=== PATIENT | male | born 1995 | race African-American/Black ===

== ENCOUNTER 2019-12-23 17:15 | Emergency (ER) | payer SELFPAY ==
[2019-12-23] MEDS ORDERED: DEXAMETHASONE SOD PHOS INJ 10 MG/1 ML VIAL IV ONE ×2 (17:27→19:34)
[2019-12-23] MEDS ORDERED: ACETAMINOPHEN 650 MG SUPP.RECT PR ONE (17:28)
--- NOTE | 2019-12-23 17:31 | ER Document Report ---
ED General - General Chief Complaint: Sore Throat Stated Complaint: SORE THROAT Primary Care Provider: JEANETTE YOUNG MD [ACTIVE STAFF] - Follow up in 1 week Mode of Arrival: Medic Information source: Patient Notes: 24-year-old male who presents emergency department with complaints of left lower back pain and sore throat. Reports symptoms started with the back pain approximately 3 days ago. He denies testicular pain. Denies pain with void. Denies difficulty voiding. He reports that he then started having a sore throat. Reports he has not been able to eat or drink for the past 2 days. EMS did attempt to give him some Tylenol but he was unable to swallow it. He reports low-grade fever denies vomiting diarrhea. Reports approximately 2 times a year he gets strep throat. Reports he has been advised to follow-up and get his tonsils removed but he has not done this. No known covid 19 exposure. Patient does not work. Denies recent out of the state of the country. TRAVEL OUTSIDE OF THE [place] IN LAST 30 DAYS: No - HPI Onset: Other - 3 DAYS Onset/Duration: Persistent Quality of pain: Achy Associated symptoms: Fever, Sore throat Exacerbated by: Denies Relieved by: Denies Similar symptoms previously: No Recently seen / treated by doctor: No - Related Data Allergies/Adverse Reactions: No Known Allergies Allergy (Unverified 12/23/19 18:42) Past Medical History - General Information source: Patient - Social History Smoking Status: Unknown if Ever Smoked Cigarette use (# per day): No Frequency of alcohol use: None Drug Abuse: None Occupation: NONE Family History: None Patient has suicidal ideation: No Patient has homicidal ideation: No - Medical History Medical History: Negative Surgical Hx: Negative Review of Systems - Review of Systems Notes: Review HPI for review of systems., All other systems negative Physical Exam - Vital signs Vitals: Temp Pulse Resp BP Pulse Ox 99.2 F 96 20 147/77 H 98 12/23/19 18:00 12/23/19 18:00 12/23/19 18:00 12/23/19 18:00 12/23/19 18:00 - General General appearance: Alert In distress: None - HEENT Head: Normocephalic, Atraumatic Eyes: Normal Conjunctiva: Normal Extraocular movements intact: Yes Mucous membranes: Moist Pharynx: Erythema, Exudate, Tonsillar hypertrophy, Potential airway comprom. Neck: Normal, Supple - Respiratory Respiratory status: No respiratory distress Chest status: Nontender Breath sounds: Normal Chest palpation: Normal - Cardiovascular Rhythm: Regular Heart sounds: Normal auscultation Murmur: No - Abdominal Inspection: Normal Distension: No distension Bowel sounds: Normal Tenderness: Nontender Organomegaly: No organomegaly - Back Back: Tender, CVA tenderness - left flank pain - Extremities General upper extremity: Normal ROM, Normal strength General lower extremity: Normal ROM, Normal strength - Neurological Neuro grossly intact: Yes Cognition: Normal Orientation: AAOx4 [place] Coma Scale Eye Opening: Spontaneous Maria C Coma Scale Verbal: Oriented [place] Coma Scale Motor: Obeys Commands Maria C Coma Scale Total: 15 Speech: Normal Motor strength normal: LUE, RUE, LLE, RLE Sensory: Normal - Psychological Associated symptoms: Normal affect, Normal mood - Skin Skin Temperature: Warm Skin Moisture: Dry Skin Color: Normal Course - Re-evaluation Re-evalutation: 12/23/19 19:43 24-year-old male presents with sore throat for the past [address] with contrast shows enlarged tonsils meeting in the midline causing moderate oropharyngeal airway narrowing. Patient reported he was unable to swallow liquid Tylenol by EMS. Patient received rectal acetaminophen upon arrival with Toradol Decadron. Patient with leukocytosis. Contacted Dr. Young, ENT. He reports of patient is able to tolerate p.o. he should be able to go home. He advised us to given 10 mg more of IV Decadron. I also advised 60 mg p.o. steroids x5 days followed by a Medrol Dosepak and amoxicillin elixir. He reports if patient cannot tolerate p.o. then he should be admitted for steroids and IV Unasyn. I discussed this with the patient. Patient reports he is able to swallow p.o. fluids. Patient has a clear voice. Will attempt p.o. challenge. 12/23/19 20:01 Patient drinking p.o. fluids without problems. 12/23/19 20:11 Patient drinking p.o. fluids eating scot crackers without problems. 12/23/19 20:34 I contacted [facility] regarding patient's prescriptions. Patient does not have money. He does not have insurance. They advised me to transmit the prescript ions to [facility] since [facility] has generic antibiotics. Patient is tolerating p.o. fluids eating scot crackers and popsicle without problem, he has a clear voice. Patient has received penicillin IM, 1 L of normal saline and a total of 20 mg Decadron IV. He was instructed on all the meds he has already received here he was instructed on the prescriptions that I have sent to [facility]. I gave him a generic prescription card and I also gave him $20 to get the prescriptions. Hopefully he will obtain the prescriptions tomorrow. I also put in a request for discharge consult to possibly obtain [facility] [place] to get his tonsils removed. Patient was instructed should he have any trouble swallowing h ave a muffled voice or any concerns he is to return immediately. He verbalized understanding to all instructions. Soft Tissue Neck CT 12/23/19 17:25 IMPRESSION: Tonsillitis without intra tonsillar or peritonsillar abscess Reactive cervical adenopathy Laboratory 12/23/19 12/23/19 12/23/19 17:38 17:38 17:38 WBC 20.2 H RBC 4.95 Hgb 14.0 Hct 41.2 MCV 83 MCH 28.3 MCHC 33.9 RDW 13.0 Plt Count 285 Lymph % (Auto) Not Reportable [place] % (Auto) Not Reportable Eos % (Auto) Not Reportable Baso % (Auto) Not Reportable Absolute Neuts (auto) Not Reportable Absolute Lymphs (auto) Not Reportable Absolute Monos (auto) Not Reportable Absolute Eos (auto) Not Reportable Absolute Basos (auto) Not Reportable Total Counted 100 Seg Neutrophils % Not Reportable Seg Neuts % (Manual) 82 H Band Neutrophils % 1 L Lymphocytes % (Manual) 5 L Atypical Lymphs % 1 Monocytes % (Manual) 10 Eosinophils % (Manual) 1 Basophils % (Manual) 0 Abs Neuts (Manual) 16.8 H Abs Lymphs (Manual) 1.2 Abs Monocytes (Manual) 2.0 H Absolute Eos (Manual) 0.2 Abs Basophils (Manual) 0.0 Platelet Comment ADEQUATE Poikilocytosis SLIGHT Sodium 135.4 L Potassium 3.8 Chloride 100 Carbon Dioxide 25 Anion Gap 10 BUN 12 Creatinine 1.19 Est GFR ( Amer) > 60 Est GFR (MDRD) Non-Af > 60 Glucose 138 H Calcium 9.5 Total Bilirubin 0.9 Direct Bilirubin 0.1 Neonat Total Bilirubin Not Reportable Neonat Direct Bilirubin Not Reportable Neonat Indirect Bili Not Reportable AST 19 ALT 19 Alkaline Phosphatase 96 Total Protein 7.9 Albumin 4.4 Urine Color Urine Appearance Urine pH Ur Specific [place] Urine Protein Urine Glucose (UA) Urine Ketones Urine Blood Urine Nitrite Urine Bilirubin Urine Urobilinogen Ur Leukocyte Esterase Urine WBC (Auto) Urine RBC (Auto) Urine Mucus (Auto) Urine Ascorbic Acid Group A Strep Rapid POSITIVE 12/23/19 17:38 WBC RBC Hgb Hct MCV MCH MCHC RDW Plt Count Lymph % (Auto) [place] % (Auto) Eos % (Auto) Baso % (Auto) Absolute Neuts (auto) Absolute Lymphs (auto) Absolute Monos (auto) Absolute Eos (auto) Absolute Basos (auto) Total Counted Seg Neutrophils % Seg Neuts % (Manual) Band Neutrophils % Lymphocytes % (Manual) Atypical Lymphs % Monocytes % (Manual) Eosinophils % (Manual) Basophils % (Manual) Abs Neuts (Manual) Abs Lymphs (Manual) Abs Monocytes (Manual) Absolute Eos (Manual) Abs Basophils (Manual) Platelet Comment Poikilocytosis Sodium Potassium Chloride Carbon Dioxide Anion Gap BUN Creatinine Est GFR ( Amer) Est GFR (MDRD) Non-Af Glucose Calcium Total Bilirubin Direct Bilirubin Neonat Total Bilirubin Neonat Direct Bilirubin Neonat Indirect Bili AST ALT Alkaline Phosphatase Total Protein Albumin Urine Color YELLOW Urine Appearance CLEAR Urine pH 6.0 Ur Specific [place] 1.020 Urine Protein NEGATIVE Urine Glucose (UA) NEGATIVE Urine Ketones NEGATIVE Urine Blood MODERATE H Urine Nitrite NEGATIVE Urine Bilirubin NEGATIVE Urine Urobilinogen 4.0 H Ur Leukocyte Esterase NEGATIVE Urine WBC (Auto) 1 Urine RBC (Auto) 7 Urine Mucus (Auto) OCC Urine Ascorbic Acid NEGATIVE Group A Strep Rapid - Vital Signs Vital signs: Temp Pulse Resp BP Pulse Ox 98.7 F 82 18 147/72 H 99 12/23/19 21:06 12/23/19 21:06 12/23/19 21:06 12/23/19 21:06 12/23/19 21:06 - Laboratory Result Diagrams: 12/23/19 17:38 12/23/19 17:38 Laboratory results interpreted by me: 12/23/19 12/23/19 12/23/19 17:38 17:38 17:38 WBC 20.2 H Seg Neuts % (Manual) 82 H Band Neutrophils % 1 L Lymphocytes % (Manual) 5 L Abs Neuts (Manual) 16.8 H Abs Monocytes (Manual) 2.0 H Sodium 135.4 L Glucose 138 H Urine Blood MODERATE H Urine Urobilinogen 4.0 H - Diagnostic Test Radiology reviewed: Image reviewed, Reports reviewed - Consults dr young Reason for consultation: 12/23/19 19:33 strep, tonsillitis, concern over airway Discharge - Discharge Clinical Impression: Sore throat, Tonsillitis, Strep throat Condition: Stable Disposition: HOME, SELF-CARE Instructions: Acetaminophen, Amoxicillin ([facility]), ENT, Fever ([facility]), Use of Rmxl-Rul-Nihkree Ibuprofen ([facility]), Penicillins ([facility]), Steroid Medication Injection, Steroid Medication, Strep Throat ([facility]), Tonsillitis ([facility]) Additional Instructions: *You have been evaluated for a sore throat, strep throat tonsillitis *Take medication as prescribed-take 60 mg prednisone daily for 5 days and then start Medrol Dosepak *Take amoxicillin suspension 500 mg p.o. by mouth twice a day for 10 days *All your prescriptions have been sent to [facility] on [address] [employer] *Take ibuprofen as indicated for pain *Monitor your temperature, take Tylenol or Motrin as indicated *Gargle with warm salt water and suck on throat lozenges for comfort *Change toothbrush after two days of antibiotics *Do not let anyone drink/eat after you *Good hand washing *Follow-up with an ENT within 1 week for recheck and to discuss tonsillectomy *Return to emergency department immediately if you are unable to swallow, worsening symptoms, concerns. Monitor your blood pressure. Your blood pressure was elevated today. This may be because you were anxious, in pain or because you need medication. It is important to follow up with your primary care provider for full evaluation. Prescriptions: Amoxicillin 500 mg PO BID #130 ml Prednisone [Deltasone 20 mg Tablet] 60 mg PO DAILY #15 tablet Methylprednisolone [Medrol Dosepack (4 mg/Tab) 21 Tab/Dosepak] 4 mg PO ASDIR PRN #[id number] tab.[id number] PRN Reason: Forms: Elevated Blood Pressure Referrals: JEANETTE YOUNG MD [ACTIVE STAFF] - Follow up in 1 week
[2019-12-23 18:09] LABS: HEMATOCRIT 41.2 % (37.9-51.0); MEAN CORPUSCULAR HEMOGLOBIN 28.3 pg (27.0-33.4); MEAN CORPUSCULAR HGB CONC 33.9 g/dL (32.0-36.0); MEAN CORPUSCULAR VOLUME 83 fl (80-97); PLATELET COUNT 285 10^3/uL (150-450); RED BLOOD COUNT 4.95 10^6/uL (4.35-5.55); WHITE BLOOD COUNT 20.2 10^3/uL (4.0-10.5)
[2019-12-23 18:11] LABS: ALBUMIN 4.4 g/dL (3.5-5.0); ALKALINE PHOSPHATASE 96 U/L (38-126); ANION GAP 10 (5-19); ASPARTATE AMINO TRANSFERASE 19 U/L (17-59); BILIRUBIN,DIRECT 0.1 mg/dL (0.0-0.4); BILIRUBIN,TOTAL 0.9 mg/dL (0.2-1.3); BLOOD UREA NITROGEN 12 mg/dL (7-20); CALCIUM 9.5 mg/dL (8.4-10.2); CARBON DIOXIDE 25 mmol/L (22-30); CHLORIDE 100 mmol/L (98-107); GLUCOSE 138 mg/dL (75-110); POTASSIUM 3.8 mmol/L (3.6-5.0); TOTAL PROTEIN 7.9 g/dL (6.3-8.2)
[2019-12-23 18:32] LABS: ABSOLUTE LYMPHOCYTES# (MANUAL) 1.2 10^3/uL (0.5-4.7); BAND NEUTROPHILS % (MANUAL) 1 % (3-5); BASOPHILS % (MANUAL) 0 % (0-2); EOSINOPHILS % (MANUAL) 1 % (0-6); LYMPHOCYTES % (MANUAL) 5 % (13-45); MONOCYTES % (MANUAL) 10 % (3-13); SEGMENTED NEUTROPHILS % (MAN) 82 % (42-78); TOTAL CELLS COUNTED 100
[2019-12-23 18:35] LABS: POIKILOCYTOSIS SLIGHT
[2019-12-23] MEDS ORDERED: PENICILLIN G BENZATHINE 1.2 MILLION UNIT/2 ML DISP.SYRIN IM ONE (18:35)
[2019-12-23] MEDS ORDERED: KETOROLAC TROMETHAMINE INJ/PF 30 MG/1 ML SDV IV ONE (18:37)
[2019-12-23 18:43] LABS: PLATELET COMMENT ADEQUATE
[2019-12-23 18:47] LABS: APPEARANCE,URINE CLEAR; BILIRUBIN,URINE NEGATIVE (NEGATIVE); COLOR,URINE YELLOW; GLUCOSE, URINE NEGATIVE (NEGATIVE); KETONES,URINE NEGATIVE (NEGATIVE); LEUKOCYTE ESTERASE,URINE NEGATIVE (NEGATIVE); NITRITE,URINE NEGATIVE (NEGATIVE); PROTEIN,URINE NEGATIVE (NEGATIVE)
--- NOTE | 2019-12-23 19:20 | RADIOLOGY REPORT (SQ) ---
EXAM DESCRIPTION: CT SOFT TISSUE NECK WITH IMAGES COMPLETED DATE/TIME: 12/23/2019 6:38 pm REASON FOR STUDY: difficulty swallowng COMPARISON: None. TECHNIQUE: Post IV contrasted scanning from skull base through lung apices with review of bone, soft tissue and lung windows. Reconstructed coronal and sagittal MPR images reviewed. All images stored on PACS. All CT scanners at this facility use dose modulation, iterative reconstruction, and/or weight based d osing when appropriate to reduce radiation dose to as low as reasonably achievable (ALARA). [facility]: Dose Right [facility]: CareDose [facility]: Dose Right [facility]: Teradose 4D [facility]: ONOFFMIX (?) CONTRAST TYPE AND DOSE: contrast/concentration: Isovue mg/ml; Total Contrast Delivered: 74.0 ml; To hetal Saline Delivered: 39.5 ml RENAL FUNCTION: None required. The patient is less than 50 years old. RADIATION DOSE: CT Rad equipment meets quality standard of care and radiation dose reduction techniq ues were employed. CTDIvol: 21.7 mGy. DLP: 666 mGy-cm. . LIMITATIONS: None. FINDINGS: SKULL BASE: Intact. MAJOR SALIVARY GLANDS: No solid or cystic masses. No inflammatory changes. LYMPHADENOPATHY: There is reactive cervical adenopathy. Index nodes are as follows: Right jugulodigastric lymph node 2.7 x 1.7 cm axial image 50 Left jugulodigastric lymph node 2.6 x 1.5 cm axial image 49 Multiple 1 cm short axis posterior triangle and carotid space lymph nodes MUCOSAL MASSES OR ASYMMETRY: Bilateral pharyngeal tonsillar enlargement is present without intra tons illar or peritonsillar abscess. Both tonsils measure about 4 x 2.5 cm in size, meeting in the midlin e, causing moderate oropharyngeal airway narrowing, best shown on axial image 38 LARYNX/CORDS: No abnormal findings. VASCULAR STRUCTURES: The major vessels are patent. LUNG APICES: Clear. BONES: Intact. THYROID: Normal size. No masses. PARANASAL SINUSES: Mild mucous membrane thickening right frontal and bilateral anterior sinuses OTHER: No other significant finding. IMPRESSION: Tonsillitis without intra tonsillar or peritonsillar abscess Reactive cervical adenopathy TECHNICAL DOCUMENTATION: JOB ID: [id number] Quality ID # [id number]: Final reports with documentation of one or more dose reduction techniques (e.g., Au tomated exposure control, adjustment of the mA and/or kV according to patient size, use of iterative reconstruction technique) 2010 [employer] All Rights Reserved Reading location - IP/workstation name: [id number]
[2019-12-23] MEDS ORDERED: NORMAL SALINE 1000 ML 1,000 ML IV ONE (19:35)
[2019-12-23] MEDS ORDERED: IBUPROFEN SUSP 100 MG/5 ML ORAL SYRINGE PO ONE ×2 (19:35→20:00)
[2019-12-23 21:09] VITALS: BP 147/72
== END 2019-12-23 21:06 | disposition home or self-care (01) ==
LOC: ER 17:15
DX: J02.0 Streptococcal pharyngitis (principal); M54.5 Low back pain; R50.9 Fever, unspecified
CPT/HCPCS: 96376; 99283; 96372; 96361; 96374; 96375; 36415; 87880; 85025; 80053; 81001; 70491; J1885; J0561; J7030; J1100

== ENCOUNTER 2020-01-15 10:28 | Emergency (ER) | payer SELFPAY ==
[2020-01-15] MEDS ORDERED: COLCHICINE 0.6 MG TABLET PO ONE ×2 (11:11→12:21)
[2020-01-15] MEDS ORDERED: KETOROLAC TROMETHAMINE 60 MG/2 ML SDV IM ONE (11:11)
--- NOTE | 2020-01-15 11:13 | ER Document Report ---
ED Extremity Problem, Lower - General Chief Complaint: Foot Pain Stated Complaint: FOOT PAIN Time Seen by Provider: 01/15/20 11:11 Primary Care Provider: [facility] [Provider Group] - Follow up as needed [facility] [Provider Group] - Follow up as needed Mode of Arrival: Wheelchair Information source: Patient Notes: 24-year-old female presented to ED for flareup of her gout. She states she is been having them more frequently lately. She states she does not have a primary care doctor so she does not go to the primary care to keep control of the gout. She states she comes to the emergency room when she has a flareup. Her pain is a 5 out of 5 at this time to the right foot. She states she smokes 4 to 5 cigarettes a day and smokes marijuana several times daily. She does not drink alcohol. She states she tries to stay on her gout diet. She states she has no other medical history but the gout. TRAVEL OUTSIDE OF THE [place] IN LAST 30 DAYS: No - HPI Patient complains to provider of: Pain, Swelling Location: Foot Occurred: Other - Right foot 3 days Quality of pain: Burning, Pressure, Sharp, Throbbing Severity: Severe Pain Level: 5 Recent injury: No Associated symptoms: Painful ambulation Exacerbated by: Movement, Walking Relieved by: Nothing - Related Data Allergies/Adverse Reactions: No Known Allergies Allergy (Unverified 12/23/19 18:42) Past Medical History - General Information source: Patient - Social History Smoking Status: Current Every Day Smoker Cigarette use (# per day): Yes - 4-5 cigarettes a day Smoking Education Provided: Yes - 4 minutes Frequency of alcohol use: None Drug Abuse: Marijuana - Multiple times daily Family History: None Patient has suicidal ideation: No Patient has homicidal ideation: No - Past Medical History Cardiac Medical History: Reports: Hx Hypertension Pulmonary Medical History: Reports: None EENT Medical History: Reports: None Neurological Medical History: Reports: None Endocrine Medical History: Reports: None Renal/ Medical History: Reports: None Malignancy Medical History: Reports None GI Medical History: Reports: None Musculoskeletal Medical History: Reports Hx Gout Skin Medical History: Reports None Psychiatric Medical History: Reports: None Traumatic Medical History: Reports: None Infectious Medical History: Reports: None Surgical Hx: Negative Past Surgical History: Reports: None - Immunizations Immunizations up to date: Yes Review of Systems - Review of Systems Constitutional: No symptoms reported EENT: No symptoms reported Cardiovascular: No symptoms reported Respiratory: No symptoms reported Gastrointestinal: No symptoms reported Genitourinary: No symptoms reported Male Genitourinary: No symptoms reported Musculoskeletal: Gout, Other - Gout right foot chronic Skin: No symptoms reported Hematologic/Lymphatic: No symptoms reported Neurological/Psychological: No symptoms reported -: Yes All other systems reviewed and negative Physical Exam - Vital signs Vitals: Temp Pulse Resp BP Pulse Ox 98.2 F 103 H 20 180/92 H 98 01/15/20 10:32 01/15/20 10:32 01/15/20 10:32 01/15/20 10:32 01/15/20 10:32 Interpretation: Normal - General General appearance: Appears well, Alert - HEENT Head: Normocephalic, Atraumatic Eyes: Normal Pupils: PERRL - Respiratory Respiratory status: No respiratory distress Chest status: Nontender Breath sounds: Normal Chest palpation: Normal - Cardiovascular Rhythm: Regular Heart sounds: Normal auscultation Murmur: No - Abdominal Inspection: Normal Distension: No distension Bowel sounds: Normal Tenderness: Nontender Organomegaly: No organomegaly - Back Back: Normal, Nontender - Extremities General upper extremity: Normal inspection, Nontender, Normal color, Normal ROM, Normal temperature General lower extremity: Normal ROM, Normal temperature, Normal weight bearing. No: Levi's sign Foot: Tender - Edema and swelling great toes and area of surrounding, Edema, No evidence of FB. No: Abrasion, Deformity, Ecchymosis, Instability, Laceration, Metatarsal compress. pain, Nail injury, Navicular tenderness, Tender 5th metatarsal - Neurological Neuro grossly intact: Yes Cognition: Normal Orientation: AAOx4 [place] Coma Scale Eye Opening: Spontaneous Maria C Coma Scale Verbal: Oriented Maria C Coma Scale Motor: Obeys Commands [place] Coma Scale Total: 15 Speech: Normal Motor strength normal: LUE, RUE, LLE, RLE Sensory: Normal - Psychological Associated symptoms: Normal affect, Normal mood - Skin Skin Temperature: Warm Skin Moisture: Dry Skin Color: Normal Course - Vital Signs Vital signs: Temp Pulse Resp BP Pulse Ox 98.2 F 103 H 20 132/88 H 98 01/15/20 11:08 01/15/20 10:32 01/15/20 10:32 01/15/20 11:17 01/15/20 10:32 Discharge - Discharge Clinical Impression: Gout Qualifiers: Gout site: foot Gout etiology: unspecified cause Chronicity: unspecified Laterality: unspecified laterality Qualified Code(s): M10.9 - Gout, unspecified Condition: Stable Disposition: HOME, SELF-CARE Additional Instructions: Gout You have been diagnosed as having gout. Gout is a problem caused by an excess of uric acid, a natural chemical found in the body. The cause of this disease is unknown. Gout arthritis occurs when crystals of uric acid form in the joints. The big toe is the most common joint involved, but any joint can become affected. Persons with gout may also form uric acid kidney stones, resulting in flank pain and blood in the urine. Nodules of uric acid may form under the skin. The first step of treatment is to decrease the inflammation in the joint with antiinflammatory medication. Medication to lower the uric acid level in the blood may then be prescribed. This medication should be taken regularly, as any sudden change in dosage may provoke an attack of gout. Some foods, such as red meat, can provoke an attack in some gout sufferers. Call the doctor if new symptoms arise, or if you do not improve. Gout Diet Changing your diet can decrease the uric acid in your blood. High levels of uric acid cause gouty arthritis and uric acid kidney stones. If you have gout, you should avoid meats that are high in purine. Meat products to avoid include liver, kidneys, and brains. In general, poultry is better than red meats. Seafoods to avoid include anchovies, sardines, wayne, mackerel, and scallops. In addition to limiting purine-rich foods, people with gout should limit protein intake to 10-15% of total calories. Carbohydrate intake should be around 50% of total daily calories. Limit fat intake to 30% of total daily calories. Cholesterol intake should be less than 300 mg/day. Maintain or achieve a healthy body weight. Weight loss should be gradual. Rapid weight loss can actually increase uric acid levels temporarily. Alcohol, especially beer, should be avoided. Get plenty of fluids. This dilutes urinary uric acid, and helps prevent uric acid kidney stones. Drink eight to twelve cups of water daily. Colchicine Colchicine is a medication used in acute attacks of gout arthritis. It's usually very effective at stopping an attack if started within the first day of pain. It can also be used to prevent attacks. Standard treatment for an acute attack is two tablets, then one tablet every one or two hours until the pain subsides. Intestinal symptoms such as nausea, vomiting, or diarrhea are common with colchicine. These side effects become more likely with higher doses of the medicine. When taking colchicine for an acute gout attack, stop taking the pill s when intestinal symptoms develop. Call the physician if you develop fever, worsening joint pain, rash, shortness of breath or wheezing, itching, or severe abdominal symptoms. Toradol Injection You have been given an injection of ketorolac tromethamine (Toradol). This is an excellent, safe drug for pain control. It also has potent antiinflammatory action. You should have significant pain relief within about one hour. Toradol is not addicting and is non-sedating. It does not interfere with driving or work. Call or return if you develop itching, hives, shortness of breath, or rash. FOLLOW-UP CARE: If you have been referred to a physician for follow-up care, call the physicians office for an appointment as you were instructed or within the next two days. If you experience worsening or a significant change in your symptoms, notify the physician immediately or return to the Emergency Department at any time for re-evaluation. Forms: Elevated Blood Pressure, Smoking Cessation Education Referrals: [facility] [Provider Group] - Follow up as needed [facility] [Provider Group] - Follow up as needed
[2020-01-15 11:18] VITALS: BP 132/88
== END 2020-01-15 12:14 | disposition home or self-care (01) ==
LOC: ER 10:28
DX: M10.9 Gout, unspecified (principal); F17.210 Nicotine dependence, cigarettes, uncomplicated
CPT/HCPCS: 99406; 99283; 96372; J1885